=== PATIENT | male | born 1940 | race Caucasian/White ===

== ENCOUNTER 2016-12-11 00:30 | Emergency (ER) | payer MEDICARE, BC ==
[2016-12-11] MEDS ORDERED: Labetalol 100 MG/20 ML MDV IVPUSH ONE (01:38)
[2016-12-11] MEDS ORDERED: Nitroglycerin/D5W 25 MG/250 ML BOTTLE IV SCH (01:45)
--- NOTE | 2016-12-11 04:20 | ER ---
HISTORY OF PRESENT ILLNESS: A 76-year-old male, who comes in by private car with his with complaints of onset of shortness of breath that happened this evening. The patient woke up with shortness of breath and his tells me that he did not wake her up for almost an hour after he first woke up. The patient tried walking around, but his shortness of breath did not get any better. The patient denies any chest pain. He has not been sick recently. He has not been running a fever. He denies any falls or injuries. His tells me that he has been recently evaluated in [place] for a nodule in his neck that was biopsied and turned out to be cancer. They are still in the workup stage involving this. He just had some lab tests done and an ultrasound of his neck 2 days ago. His further tells me that he has not been feeling well this winter. He has lost 16 pounds since September and she has noticed he looks more pale recently. PAST MEDICAL HISTORY: The patient has history of an aortic aneurysm, which was surgically repaired in 2007. He denies any heart history. OBJECTIVE: GENERAL APPEARANCE: The patient is awake and alert. He is in obvious respiratory distress. He is able to answer questions verbally with 1 or 2 words only. VITAL SIGNS: Initially revealed blood pressure in the 160s over 90s, he is afebrile. LUNGS: Reveals scattered wheezes and rhonchi throughout the lung borjas. CARDIAC: Heart sounds distinct with an obvious systolic murmur. SKIN: Warm and dry. ABDOMEN: Soft and nontender with palpation. LABORATORY DATA: At this point, the patient was sent for a chest CT and labs were drawn including a CBC, which came back with a white count of 24,800, hemoglobin of 7.8, D-dimer is greater than 5000. Comprehensive metabolic panel reveals a sodium level of 134, potassium 5.2, carbon dioxide 12.0, troponin is elevated at 0.654[place] [address]. The patient was given a neb treatment as soon as he came back from the CT. This did not seem to help his breathing. At this point, we called [facility] and the [facility] doctor was consulted and assisted with this patient's care. The patient was put on a BiPAP machine, which seemed to help his breathing for a while and after about 15 minutes, he started to fight the BiPAP and it was taken off. He was given labetalol [address] report came back showing a possible aortic dissection, negative for any obvious PE. The [place] physician was informed of this and arrangements were made for transfer. [facility] was called. At this point, the patient's breathing still remained difficult and the decision to intubate was discussed. I called Dr. Merida, the backup physician, who came in and performed the intubation and helped to monitor the patient. The intubation went well. [facility] did arrive and it was determined that the patient could not go by chopper. A fixed-wing plane is needed due to weather and arrangements were made for a fixed wing to come from [place] and transfer the patient. [facility] accepted the patient in [place]. Dr. Patterson is the thoracic surgeon who will be seeing him, and his feels that this is the same physician who did the previous surgery in 2007. The patient's blood pressure drop with the labetalol and it was monitored closely with readings in the 90 to 120 range systolic and 60 to 90 range diastolic. The last reading was 90/60. The patient's pulse remained in the 80s. DIAGNOSIS: Possible aortic dissection with severe respiratory distress. The patient left the hospital at 3:40 a.m. HIREN/MODL /[id number]
[2016-12-11 06:52] VITALS: BP 152/73
--- NOTE | 2016-12-13 07:26 | CR ---
DATE OF SERVICE: 12/11/16 CLINICAL DATA: Intubation placement check. AP PORTABLE CHEST: No priors. The patient is status post median sternotomy. There is an endotracheal tube in place with its distal tip 2 cm above the stephanie. The heart is enlarged. There is pulmonary vascular congestion and bilateral pulmonary edema. There are atelectatic changes in the left lower lung. There is blunting of both costophrenic angles, consistent with bilateral pleural effusions. I do not see any other significant findings. [id number] [facility]
--- NOTE | 2016-12-13 07:34 | CT ---
DATE OF SERVICE: 12/11/16 CLINICAL DATA: SOB. UNENHANCED CHEST CT: Multi-slice acquisition through the chest without IV contrast was performed. No priors. There are small bilateral pleural effusions, right greater than left. There are interstitial infiltrates throughout both lungs. Interstitial edema and failure should be considered. There are atelectatic changes at the dependent portion of both lungs. No areas of consolidation. The heart is mildly enlarged. No pericardial effusion. There are calcifications in the region of the aortic and mitral valves. The ascending aorta is abnormal. It is dilated and measures greater than 5 cm in diameter. There is also a double density consistent with a aortic dissection. It does not extend into the descending aorta. No adenopathy. No other significant findings. IMPRESSION: 1. Abnormal ascending aorta as discussed above, consistent with aneurysm and dissection. 2. Findings suggesting pulmonary edema. 3. Bilateral pleural effusions. 4. The patient's healthcare provider was informed of the findings by telephone and by virtual radiologic preliminary radiology report. [id number] [facility]
== END 2016-12-11 03:35 ==
LOC: LB.ED 00:30
DX: R06.00 Dyspnea, unspecified (principal)
CPT/HCPCS: 36415; 71010; 71250; 80053; 83880; 84484; 85025; 85379; 93005; 99285; A0425; A0429; 99284